=== PATIENT | female | born 1975 | race African-American/Black ===

== ENCOUNTER 2020-06-04 15:35 | Emergency (ER) | payer MEDICARE, MEDICAID ==
[~2020-06-04] VITALS: Ht 165.1 cm; Wt 111.1 kg
[2020-06-04] MEDS ORDERED: LISINOPRIL20 M1 PO (16:11)
[2020-06-04] MEDS ORDERED: HYDROCHLOROT25 MG PO (16:12)
[2020-06-04 17:50] VITALS: BP 165/86
== END 2020-06-04 17:50 | disposition home or self-care (01) ==
LOC: ED 15:35
PROC: 2W3QX1Z Immobilization of Right Lower Leg using Splint (ICD-10-PCS; principal; 2020-06-04)
DX: S92.001A Unspecified fracture of right calcaneus, initial encounter for closed fracture (principal); I10 Essential (primary) hypertension; J45.909 Unspecified asthma, uncomplicated; F17.210 Nicotine dependence, cigarettes, uncomplicated; X58.XXXA Exposure to other specified factors, initial encounter

== ENCOUNTER 2021-06-15 10:16 | Emergency (ER) | payer MEDICARE, MEDICAID ==
[~2021-06-15] VITALS: Ht 165.1 cm; Wt 140.0 kg
[~2021-06-15 10:16] MED LIST: HYDROCHLOROT25 MG PO; LISINOPRIL20 M1 PO
[2021-06-15] MEDS ORDERED: HYDROCHLOROT25 MG PO (10:48)
[2021-06-15] MEDS ORDERED: LISINOPRIL20 MG PO ×2 (10:48→10:49)
[2021-06-15] MEDS ORDERED: AMLODIPINE BESY10 MG PO (10:49)
[2021-06-15 11:23] LABS: HEMATOCRIT 33.3 % (37.0-47.0); HEMOGLOBIN 9.6 g/dl (12.0-16.0); IMMATURE GRANULOCYTES 0.2 % (0.0-5.0); MEAN CELL VOLUME 82.4 fL CALC (80.0-100.0); MEAN CORPUSCULAR HGB 23.8 pG CALC (26.0-32.0); MEAN CORPUSCULAR HGB CONC 28.8 g/dL CAL (32.0-36.0); NEUT# 2.9 thou/uL (2.00-7.15); RED BLOOD COUNT 4.04 mill/uL (4.20-5.60); RED CELL DISTRI WIDTH 16.9 % (11.5-15.5)
[2021-06-15 11:30] LABS: ALBUMIN 3.7 g/dL (3.2-5.0); ALKALINE PHOSPHATASE 69 u/l (38-126); ANION GAP 10 (6-22 (CALC)); BILIRUBIN, TOTAL 0.3 mg/dL (0.0-1.4); BUN 18 mg/dL (7-17); BUN/CREATININE RATIO 24 (12-20 (CALC)); CARBON DIOXIDE 28 mmol/l (22-30); CHLORIDE 105 mmol/l (95-108); CREATININE 0.7 mg/dL (0.5-1.0); GFR > 60 ML/MIN (>=60 (CALC)); GFR FOR AFR.AMER. > 60 ML/MIN (>=60 (CALC)); LIPASE 197 u/l (23-300); POTASSIUM 4.1 mmol/l (3.5-5.1); SGOT/AST 19 u/l (14-36); SODIUM 138 mmol/l (137-146); TOTAL PROTEIN 6.7 g/dL (6.3-8.2)
[2021-06-15 14:00] VITALS: BP 176/79
== END 2021-06-15 14:01 | disposition home or self-care (01) ==
LOC: ED 10:16
PROVIDERS: Family Medicine
DX: S40.012A Contusion of left shoulder, initial encounter (principal); S80.02XA Contusion of left knee, initial encounter; S60.212A Contusion of left wrist, initial encounter; S90.02XA Contusion of left ankle, initial encounter; S90.01XA Contusion of right ankle, initial encounter; S20.212A Contusion of left front wall of thorax, initial encounter; M54.50 Low back pain, unspecified; E66.01 Morbid (severe) obesity due to excess calories; I10 Essential (primary) hypertension; J45.909 Unspecified asthma, uncomplicated; F17.210 Nicotine dependence, cigarettes, uncomplicated; W18.30XA Fall on same level, unspecified, initial encounter; Y92.481 Parking lot as the place of occurrence of the external cause

== ENCOUNTER 2021-11-23 13:43 | Emergency (ER) | payer MEDICARE, MEDICAID ==
[~2021-11-23] VITALS: Ht 165.1 cm; Wt 120.0 kg
[2021-11-23] VITALS (7 sets, daily range): BP systolic 124–155; BP diastolic 58–94
[~2021-11-23 13:43] MED LIST changes: +AMLODIPINE BESY10 MG PO; +LISINOPRIL20 MG PO
[2021-11-23 14:53] LABS: ALBUMIN 3.7 g/dL (3.2-5.0); BILIRUBIN, TOTAL 0.2 mg/dL (0.0-1.4); CREATININE 1.3 mg/dL (0.5-1.0); TOTAL PROTEIN 7.6 g/dL (6.3-8.2)
[2021-11-23 14:56] LABS: HEMATOCRIT 37.9 % (37.0-47.0); HEMOGLOBIN 10.8 g/dl (12.0-16.0); IMMATURE GRANULOCYTES 1.6 % (0.0-5.0); MEAN CELL VOLUME 79.8 fL CALC (80.0-100.0); MEAN CORPUSCULAR HGB 22.7 pG CALC (26.0-32.0); MEAN CORPUSCULAR HGB CONC 28.5 g/dL CAL (32.0-36.0); NEUT# 2.95 thou/uL (2.00-7.15); RED BLOOD COUNT 4.75 mill/uL (4.20-5.60); RED CELL DISTRI WIDTH 17.7 % (11.5-15.5)
[2021-11-23 14:59] LABS: POTASSIUM 2.9 mmol/l (3.5-5.1)
[2021-11-23] MEDS ORDERED: POTASSIUM CHLO20 ME1 PO (15:57)
[2021-11-23] MEDS ORDERED: MEDDOSEPAK PO (15:57)
== END 2021-11-23 16:05 | disposition home or self-care (01) ==
LOC: ED 13:43
DX: T78.1XXA Other adverse food reactions, not elsewhere classified, initial encounter (principal); R22.0 Localized swelling, mass and lump, head; I10 Essential (primary) hypertension; J45.909 Unspecified asthma, uncomplicated; F17.200 Nicotine dependence, unspecified, uncomplicated; X58.XXXA Exposure to other specified factors, initial encounter

== ENCOUNTER 2021-12-27 11:12 | Emergency (ER) | payer MEDICARE, MEDICAID ==
[~2021-12-27] VITALS: Ht 165.1 cm; Wt 125.0 kg
[~2021-12-27 11:12] MED LIST changes: +MEDDOSEPAK PO; +POTASSIUM CHLO20 ME1 PO
[2021-12-27] MEDS ORDERED: CLEOCIN300 MG PO (11:19)
[2021-12-27 11:36] VITALS: BP 175/90
== END 2021-12-27 11:50 | disposition home or self-care (01) ==
LOC: ED 11:12
DX: K08.89 Other specified disorders of teeth and supporting structures (principal); E66.9 Obesity, unspecified; I10 Essential (primary) hypertension; J45.909 Unspecified asthma, uncomplicated; F17.200 Nicotine dependence, unspecified, uncomplicated

== ENCOUNTER 2024-02-19 09:27 | Emergency (ER) | payer MEDICARE, MEDICAID ==
[~2024-02-19] VITALS: Ht 165.1 cm; Wt 157.2 kg
[2024-02-19] VITALS (10 sets, daily range): BP systolic 163–197; BP diastolic 87–163
[~2024-02-19 09:27] MED LIST changes: +CLEOCIN300 MG PO
[2024-02-19] MEDS ORDERED: IBUPROFEN600 MG PO (10:59)
[2024-02-19] MEDS ORDERED: KETOROLAC TROMETHAMINE 30 MG/ML SDV IM ONE (11:00)
== END 2024-02-19 11:22 | disposition home or self-care (01) ==
LOC: ED 09:27
DX: M25.562 Pain in left knee (principal); I10 Essential (primary) hypertension; J45.909 Unspecified asthma, uncomplicated; F17.210 Nicotine dependence, cigarettes, uncomplicated